=== PATIENT | male | born 1985 | race African-American/Black ===

== ENCOUNTER 2025-02-12 18:39 | Inpatient (IN) | payer SELFPAY ==
--- NOTE | ~2025-02-12 | XR_ITS ---
CLINICAL HISTORY: SOB 1 view chest x-ray Comparison: None provided Findings: Heart size is normal. No consolidation, significant pleural effusion or pneumothorax. No acute fracture. IMPRESSION: 1. No acute findings. This document has been electronically signed by: Diana Michael MD on 02/12/2025 20:11:58
--- NOTE | 2025-02-12 18:43 | ECG_ITS ---
Test Reason : SOB Blood Pressure : */* mmHG Vent. Rate : 111 BPM Atrial Rate : 111 BPM P-R Int : 148 ms QRS Dur : 86 ms QT Int : 342 ms P-R-T Axes : 73 50 50 degrees QTcB Int : 465 ms Sinus tachycardia Otherwise normal ECG No previous ECGs available Referred By: Javier Wadsworth Electronically Signed By: STEPHANIE DUARTE
[2025-02-12 18:46] VITALS: BP 175/103; PULSE 104; RESP 30; O2SAT 86; BMI 36.9
[2025-02-12 18:52] VITALS: PULSE 102; RESP 30; O2SAT 94
[2025-02-12] MEDS: Albuterol Sulfate 7.5 MG, Albuterol/Iprat 2.5/0.5MG 3 ML 3 ML INHALE (18:53)
[2025-02-12] MEDS: Magnesium Sulfate/H2O 2 GM/50 ML PIGGYBACK IV (18:54)
[2025-02-12 18:57] LABS: MANUAL DIFF FLAG NO
--- NOTE | 2025-02-12 18:59 | ED_ITS ---
HPI - SOB/Dyspnea General Chief Complaint: Dyspnea Stated Complaint: SOB Time Seen by Provider: 02/12/25 18:58 History of Present Illness ED Provider: Bobo Isabel MD HPI Narrative: 39-year-old male with lifelong asthma nonadherent with medications other than PRN albuterol pump which he has been using more over the past week. 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 Related Data Home Medications ?Medication ?Instructions ?Recorded ?Confirmed albuterol sulfate 90 mcg/actuation 2 puff inhalation Q 6H PRN 02/13/25 02/13/25 aerosol inhaler Shortness Of Breath Or Wheez ing budesonide-formoterol HFA 160 2 puff inhalation DAILY 02/13/25 02/13/25 mcg-4.5 mcg/actuation aerosol inhaler (Symbicort) montelukast 10 mg tablet 10 mg PO DAILY 02/13/2501/24 Previous Rx's ?Medication ?Instructions ?Recorded prednisone 20 mg tablet 20 mg PO DAILY #8 tabs 02/14 Allergies Allergy/AdvReac Type Severity Reaction Status Date / Time No Known Allergies Allergy Verified 02/12/25 18:47 [facility] Past Medical History Medical History (Updated 02/13/25 @ 18:02 by KAY Angel) Asthma Social History Social History Household Members: Significant Other and Children Housing: Apartment Do you presently have visiting nurse or other home services: No Comment: LFR steady gait noted Patient Tobacco Use Status: Tobacco use Unknown e-Cigarette/Vaping Use: Never Used service: No Physical Exam 2 Exam: Exam: EXAM: Gen: Alert, on arrival ill-appearing with tachypnea decreased air entry some accessory muscle use able to speak 3-4 word sentences Head: Atraumatic Eyes: Anicteric, Normal conjunctiva. ENT: Moist mucosa, no pallor. ? Neck: Supple. Skin: ?No observable rash or bruising on exposed or examined skin Respiratory: Tachypnea with decreased air entry and audible but difficult to auscultate wheezing Cardiovascular: Regular rate and rhythm. No murmurs or rub. Well perfused periphery, warm extremities. No edema. ? Abdominal: No focal tenderness. Soft, no objective distension. No palpable masses or obvious organomegaly. ?No guarding, no rebound tenderness or other peritoneal findings. : No flank tenderness. Neuro: Alert. Gross movement of all extremities intact. ? Psych: Calm. Cooperative. MSK: No grossly visible deformity. Vital signs: See flowsheet Vital Signs: Vital Signs: Last Vital Signs Temp 98.7 F 02/14/25 11:13 Pulse 97 02/14/25 11:13 Resp 16 02/14/25 11:13 BP 144/78 H 02/14/25 11:13 Pulse Ox 90 L 02/14/25 11:13 O2 Del Method Room Air 02/14/25 11:13 O2 Flow Rate 2 02/14/25 04:00 BMI result Body Mass Index 36.9 Medications Administered Discontinued Medications Generic Name Dose Route Start Last Admin Trade Name Freq PRN Reason Stop Dose Admin Albuterol/Ipratropium 6 ml 02/12/25 19:38 02/12/25 19:44 Albuterol/Iprat 2.5/0.5mg 3 Ml Ampul.Neb INHALE 02/12/25 19:39 6 ml ONCE ONE Administration Albuterol/Ipratropium 3 ml 02/13/25 08:00 02/14/25 07:58 Albuterol/Iprat 2.5/0.5mg 3 Ml Ampul.Neb INHALE 3 ml RQ6H WHILE AWAKE VALE Administration Albuterol Sulfate 7.5 mg/ 0 mg 02/12/25 18:52 02/12/25 18:53 Albuterol/Ipratropium 3 ml INHALE 02/12/25 18:53 1 each ONCE ONE Administration Enoxaparin Sodium 40 mg 02/13/25 09:00 02/14/25 08:29 Enoxaparin Sodium 40 Mg/0.4 Ml Syringe SUBCUT 40 mg Q24H VALE Administration Fluticasone/Vilanterol 1 puff 02/14/25 08:00 02/14/25 08:08 Fluticasone/Vilanterol 200/25 Blst.W.Dev INHALE 1 puff RDAILY VALE Administration Magnesium Sulfate 2 gm in 50 mls @ 150 mls/hr 02/12/25 18:42 02/12/25 19:34 Magnesium Sulfate/H2o IV 02/12/25 19:01 Infused ONCE ONE Infusion Magnesium Sulfate/Dextrose 1 gm in 100 mls @ 300 mls/hr 02/12/25 20:35 02/12/25 21:50 Magnesium Sulfate/D5w IV 02/12/25 20:54 Infused ONCE ONE Infusion Methylprednisolone Sodium Succinate 60 mg 02/12/25 18:42 02/12/25 18:56 Methylprednisolone Sod Succ 125 Mg/2 Ml Vial IVPUSH 02/12/25 18:43 60 mg ONCE ONE Administration Methylprednisolone Sodium Succinate 40 mg 02/13/25 00:00 02/14/25 06:41 Methylprednisolone Sod Succ 40 Mg/Ml Vial IVPUSH 40 mg Q6H VALE Administration Montelukast Sodium 10 mg 02/14/25 09:00 02/14/25 08:28 Montelukast Sodium 10 Mg Tablet PO 10 mg DAILY VALE Administration Sodium Chloride 3 ml 02/13/25 00:00 02/14/25 08:32 0.9 % Sodium Chloride Flush 3 Ml Syringe IVFLUSH 3 ml QSHIFT VALE Administration Medical Decision Making Medical Decision Making MDM Narrative: Medical Decision Making: [age] male with asthma worsening dyspnea wheezing was 86% with decreased air entry at triage vilchis back when I saw him he was able to speak in a few words was high 90s on an OxyMask. Diminished but audible expiratory wheeze. Mildly tachypneic no retractions or cyanosis. Immediately started on magnesium and DuoNeb OxyMask. The patient was monitored with 2 sequential doses of intravenous magnesium he received IV steroids. Strongly encouraged to see pulmonology Afebrile without focal infiltrate on x-ray doubt pneumonia Preliminary Favored Differential Diagnosis: URI,, pneumothorax, bronchitis, asthma exacerbation among additional considered etiologies Testing Interpreted Independently: ?X-ray with no focal infiltrate ECG: Sinus tachycardia rate 111, QTC 465, no acute ischemic changes no RV strain. Radiology or Lab testing Results Reviewed: ?See below for details Consults: ?See below for details Independent Historians/External Chart Reviews: ?See below for details Social Determinants of Health Impacting MDM/Planning: ?See below for details Lab Data MDM Lab Attestation statement: I reviewed the patient's lab results. 02/13/25 03:51 02/13/25 03:51 Labs: Lab Results 02/12/25 02/12/25 02/12/25 Range/Units 18:47 19:01 19:08 WBC 12.3 H (4.8-10.8) X10*3/uL RBC 5.06 (4.60-5.80) X10*6/uL Hgb 14.8 (14.0-18.0) g/dl Hct 45.2 (42.0-52.0) % MCV 89.3 (80.0-98.0) fL MCH 29.2 (27.0-33.0) pg MCHC 32.7 (31.0-36.0) g/dl RDW 13.4 (11.0-16.0) % Plt Count 391 (160-400) X10*3/uL MPV 8.2 L (9.4-12.4) fL Immature Gran % (Auto) 0.4 (0.0-0.4) % Neut % (Auto) 67.7 (45-73) % Lymph % (Auto) 17.5 L (20-40) % [place] % (Auto) 8.2 (2-11) % Eos % (Auto) 5.8 H (0-4) % Baso % (Auto) 0.4 (0-2) % Lymph # (Auto) 2.2 (1.2-4.9) X10*3/uL [place] # (Auto) 1.0 (0.1-1.2) X10*3/uL Eos # (Auto) 0.7 H (0.0-0.4) X10*3/uL Baso # (Auto) 0.1 (0.0-0.2) X10*3/uL Abs Immat Gran (auto) 0.05 H (0.00-0.03) X10*3/uL Absolute Neuts (auto) 8.3 (2.0-8.3) x10*3/uL Absolute Nucleated RBC 0.000 (0.0-0.012) X10*3/uL Nucleated RBC % (auto) 0.0 (0.0-0.2) /100WBC Hold Purple Top SEE NOTE PT 12.0 (11.2-13.5) SEC INR 1.0 (0.9-1.1) APTT 32.0 (26.7-34.1) SEC VBG pH 7.38 (7.32-7.43) VBG pCO2 46 mmHg VBG pO2 62 mmHg VBG HCO3 27 H (22-26) mmol/L VBG O2 Saturation 86.0 % VBG Base Excess 2.0 mmol/L Sodium 143 (135-145) mmol/L Potassium 4.3 (3.3-5.1) mmol/L Chloride 108 (96-108) mmol/L Carbon Dioxide 26 (22-29) mmol/L Anion Gap 13 (12-20) BUN 15 (9-16) mg/dL Creatinine 0.99 (0.5-1.4) mg/dL Estim Creat Clear Calc 123.1 Estimated GFR > 60 Random Glucose 92 (60-115) mg/dL Calcium 9.5 (8.4-10.2) mg/dL Total Bilirubin 0.3 (0.0-1.0) mg/dL AST 39 H (5-37) U/L ALT 29 (0-40) U/L Alkaline Phosphatase 60 (39-117) U/L Troponin I High Sens < 2.7 (<3.5-35.0) ng/L NT-Pro-B Natriuret Pep 37.9 (<300) pg/mL Total Protein 8.1 H (6.5-8.0) g/dL Albumin 4.9 (3.5-5.0) g/dL Critical Care Time Critical Care Time Critical Care Time: Yes Total Critical Care Time: 30 Attestation: ED Critical Care: Authorized and Performed by: Bobo Isabel MD Total critical care time: Approximately 30 min Due to a high probability of clinically significant, life threatening deterioration, the patient required my highest level of preparedness to intervene emergently and I personally spent this critical care time directly and personally managing the patient. This critical care time included obtaining a history; examining the patient; pulse oximetry; ordering and review of studies; arranging urgent treatment with development of a management plan; evaluation of patient's response to treatment; frequent reassessment; and, discussions with other providers. This critical care time was performed to assess and manage the high probability of imminent, life-threatening deterioration that could result in multi-organ failure. It was exclusive of separately billable procedures and treating other patients and teaching time. Discharge Plan Discharge Clinical Impression: Asthma with exacerbation Qualifiers: Asthma severity: unspecified severity Asthma persistence: unspecified Qualified Code(s): J45.901 - Unspecified asthma with (acute) exacerbation Patient Disposition: Admitted As Inpatient Interventions: Admission Worksheet (ED) Last Done: 02/13/25 01:40 Discharge Date/Time: 02/13/25 04:05
[2025-02-12 19:00] LABS: Hematocrit 45.2 % (42.0-52.0); Hemoglobin 14.8 g/dl (14.0-18.0); Imm Gran Abs Auto 0.05 X10*3/uL (0.00-0.03); Imm Gran Pct Auto 0.4 % (0.0-0.4); Lymphocytes Absolute Auto 2.2 X10*3/uL (1.2-4.9); Mean Corpuscular HGB Conc 32.7 g/dl (31.0-36.0); Mean Corpuscular Hemoglobin 29.2 pg (27.0-33.0); Mean Corpuscular Volume 89.3 fL (80.0-98.0); NRBC Abs Auto 0.000 X10*3/uL (0.0-0.012); NRBC Pct Auto 0.0 /100WBC (0.0-0.2); Platelet Count 391 X10*3/uL (160-400); Red Blood Count 5.06 X10*6/uL (4.60-5.80); White Blood Count 12.3 X10*3/uL (4.8-10.8)
[2025-02-12 19:10] LABS: VBG HCO3 27 mmol/L (22-26); VBG O2 % Saturation 86.0 %
[2025-02-12 19:19] LABS: Alanine Aminotransferase 29 U/L (0-40); Albumin Level 4.9 g/dL (3.5-5.0); Alkaline Phosphatase 60 U/L (39-117); Anion Gap 13 (12-20); Aspartate Amino Transferase 39 U/L (5-37); Blood Urea Nitrogen 15 mg/dL (9-16); Calcium 9.5 mg/dL (8.4-10.2); Carbon Dioxide 26 mmol/L (22-29); Chloride 108 mmol/L (96-108); Creatinine Clr Calc Pharmacy 123.1; Estimated Glomerular Filt Rate > 60; Potassium 4.3 mmol/L (3.3-5.1); Sodium 143 mmol/L (135-145); Total Protein 8.1 g/dL (6.5-8.0)
[2025-02-12 19:38] VITALS: BP 119/85; PULSE 102; RESP 20; O2SAT 94
[2025-02-12 19:38] LABS: INTERNATIONAL NORM RATIO 1.0 (0.9-1.1); Prothrombin Time 12.0 SEC (11.2-13.5)
[2025-02-12 19:38] LABS: Troponin-I High Sensitivity < 2.7 ng/L (<3.5-35.0)
--- NOTE | 2025-02-12 19:38 | PC.NURSE ---
Pt A&ox3. Pt reports feeling better after receiving nebulizer treatment, IV magnesium & IV steroids. Pt still slightly tachypneic. Pt still has mild wheeze in lungs bilat, stable spO2 on 6L oxygen via NC. 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 Pt placed on tele. Pt's mother at bedside. Plan for another nebulizer treatment.
[2025-02-12 19:40] LABS: Partial Thromboplastin Time 32.0 SEC (26.7-34.1)
[2025-02-12 19:41] LABS: NT Pro B Type Natriuretic Pept 37.9 pg/mL (<300)
[2025-02-12] MEDS: Albuterol/Iprat 2.5/0.5MG 3 ML AMPUL.NEB 6 ML INHALE (19:44)
[2025-02-12 19:46] VITALS: PULSE 102; RESP 20; O2SAT 95
--- OUTSIDE RECORDS SUMMARY | 2025-02-12 19:49 | XMS_ITS ---
Author Name [facility] Organization Unknown Care Team Organization Name Specialty Phone Email Start Date End Da te [facility] Marylu Aquino [facility] 07/30/2022 11/11/2023 [facility] Kiera Saenz [facility] 01/30/2022
[2025-02-12 20:10] LABS: Venous Blood Gas Refer to POC result
[2025-02-12 21:51] VITALS: PULSE 83; RESP 15; O2SAT 95
--- NOTE | 2025-02-12 23:07 | P.HPHOSP_ITS ---
History of Present Illness Date of Service: 02/12/25 Chief Complaint: sob 39-year-old male with a past medical history of asthma presented to the hospital with a chief complaint of shortness of breaths. Patient mentioned that for the past 1 day he has been having shortness of breath presented to the ER further evaluation. Denies any specific triggers for his asthma. Denies prior history of intubation. Patient denies any fever chills cough or sputum production. Denies any sick contacts. Review of all other systems is negative except mentioned above ER course: Per ER team, patient noted to have bilateral wheezing on presentation was hypoxic to 88%; placed on supplemental oxygen; given nebulizations and steroids. Speech status improved. [facility] Social History Advance Directives: No Advance Directives Information Provided: No Meds Allergies Allergy/AdvReac Type Severity Reaction Status Date / Time No Known Allergies Allergy Verified 02/12/25 18:47 Active Medications: Current Medications Acetaminophen (Acetaminophen 325 Mg Tablet) 650 mg PO Q6H PRN PRN Reason: Pain, Mild 1-3,fever,headache Calcium Carbonate (Calcium Carbonate 750 Mg Tab.Chew) 750 mg PO Q4H PRN PRN Reason: Heartburn Enoxaparin Sodium (Enoxaparin Sodium 40 Mg/0.4 Ml Syringe) 40 mg SUBCUT Q24H VALE Magnesium Hydroxide (Milk Of Magnesia 30 Ml Oral.Susp) 30 ml PO DAILY PRN PRN Reason: Constipation Melatonin (Melatonin 3 Mg Tablet) 6 mg PO BEDTIME PRN PRN Reason: Insomnia Sodium Chloride (0.9 % Sodium Chloride Flush 3 Ml Syringe) 3 ml IVFLUSH QSHIFT [facility] Physical Exam 2 Vital Signs and Narrative: Vital Signs: Last Vital Signs Pulse 83 02/12/25 21:51 Resp 15 02/12/25 21:51 BP 119/85 02/12/25 19:38 Pulse Ox 95 02/12/25 21:51 O2 Del Method Nasal Cannula 02/12/25 21:51 O2 Flow Rate 4 02/12/25 21:51 BMI result Body Mass Index 36.9 Gen: Appears be in no acute distress HEENT: NCAT, Moist mucosa. Pulmonary: Coarse breath sounds CVS: Normal S1-S2 Abdomen: BS+, Soft, Nontender Extremities: Warm well perfused Neuro: Alert and awake. Results Labs 02/12/25 18:47 02/12/25 18:47 Labs: Laboratory Results - last 24 hr 02/12/25 02/12/25 02/12/25 18:47 19:01 19:08 MCV 89.3 MCH 29.2 MCHC 32.7 RDW 13.4 Plt Count 391 MPV 8.2 L Immature Gran % (Auto) 0.4 Neut % (Auto) 67.7 Lymph % (Auto) 17.5 L [place] % (Auto) 8.2 Eos % (Auto) 5.8 H Baso % (Auto) 0.4 Lymph # (Auto) 2.2 [place] # (Auto) 1.0 Eos # (Auto) 0.7 H Baso # (Auto) 0.1 Abs Immat Gran (auto) 0.05 H Absolute Neuts (auto) 8.3 Absolute Nucleated RBC 0.000 Nucleated RBC % (auto) 0.0 Hold Purple Top SEE NOTE PT 12.0 INR 1.0 APTT 32.0 VBG pH 7.38 VBG pCO2 46 VBG pO2 62 VBG HCO3 27 H VBG O2 Saturation 86.0 VBG Base Excess 2.0 Anion Gap 13 Estim Creat Clear Calc 123.1 Estimated GFR > 60 Random Glucose 92 Calcium 9.5 Total Bilirubin 0.3 AST 39 H ALT 29 Alkaline Phosphatase 60 Troponin I High Sens < 2.7 NT-Pro-B Natriuret Pep 37.9 Total Protein 8.1 H Albumin 4.9 Assessment and Plan (1) Asthma with exacerbation: Qualifiers: Asthma severity: unspecified severity Asthma persistence: unspecified Qualified Code(s): J45.901 - Unspecified asthma with (acute) exacerbation Status: Acute Plan 39-year-old male with a past medical history of asthma-never intubated, cannabis use presented to the hospital with a chief complaint of shortness of breath. Noted to have acute asthma exacerbation. Acute asthma exacerbation: Acute hypoxic respiratory failure: Chest x-ray showed no evidence of pneumonia D-dimer negative Has bilateral wheezing Continue nebulizations standing and plan Continue Solu-Medrol Trending pulse oximetry and ready for discharge DVT prophylaxis: Lovenox Code status: Full code Quality Stroke Does the patient have a stroke diagnosis?: No VTE Prior VTE?: No VTE Risk Level:: Medical - moderate - high VTE Device Contraindication: Treatment Not Indicated VTE Drug Contraindication: N/A - Med Ordered
--- NOTE | 2025-02-12 23:10 | PC.NURSE ---
Pt O2 noted to drop to 87-89% on room air. Pt placed on oxygen @ 2L NC per protocol.
[2025-02-12 23:15] VITALS: BP 128/73; PULSE 85; RESP 19; TEMP 36.7; O2SAT 92
[2025-02-12 23:39] LABS: D Dimer High Sensitivity < 150 NG/ML
[2025-02-13] VITALS (10 sets, daily range): BP systolic 132–158; BP diastolic 64–87; PULSE 73–94; RESP 14–18; TEMP 36.6–37.5; O2SAT 87–95
[2025-02-13] MEDS: 0.9 % Sodium Chloride Flush 3 ML SYRINGE IVFLUSH ×3 (03:30→17:11)
[2025-02-13 04:11] LABS: Hematocrit 41.5 % (42.0-52.0); Hemoglobin 13.8 g/dl (14.0-18.0); Mean Corpuscular HGB Conc 33.3 g/dl (31.0-36.0); Mean Corpuscular Hemoglobin 29.2 pg (27.0-33.0); Mean Corpuscular Volume 87.9 fL (80.0-98.0); NRBC Abs Auto 0.000 X10*3/uL (0.0-0.012); NRBC Pct Auto 0.0 /100WBC (0.0-0.2); Platelet Count 365 X10*3/uL (160-400); Red Blood Count 4.72 X10*6/uL (4.60-5.80); White Blood Count 10.3 X10*3/uL (4.8-10.8)
[2025-02-13 04:26] LABS: Alanine Aminotransferase 25 U/L (0-40); Albumin Level 4.7 g/dL (3.5-5.0); Alkaline Phosphatase 56 U/L (39-117); Anion Gap 15 (12-20); Aspartate Amino Transferase 18 U/L (5-37); Blood Urea Nitrogen 14 mg/dL (9-16); Calcium 9.2 mg/dL (8.4-10.2); Carbon Dioxide 24 mmol/L (22-29); Chloride 105 mmol/L (96-108); Creatinine Clr Calc Pharmacy 133.9; Estimated Glomerular Filt Rate > 60; Potassium 4.6 mmol/L (3.3-5.1); Sodium 139 mmol/L (135-145); Total Protein 7.4 g/dL (6.5-8.0)
[2025-02-13] MEDS: Albuterol/Iprat 2.5/0.5MG 3 ML AMPUL.NEB INHALE ×2 (08:18→14:05)
--- NOTE | 2025-02-13 09:45 | PHA.MEDREC ---
Addendum entered by Justo Ruffin PharmD 02/13/25 10:00: reviewed Original Note: Pharmacy Consult ? Medication Reconciliation Pharmacy has completed the medication reconciliation. Confirmed medication list with patient. 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 patient states he would otherwise be taking these medications.
--- NOTE | 2025-02-13 12:04 | P.PNIM_ITS ---
Subjective Subjective Date of Service: 02/13/25 Interval History: Still SOB and wheezing but better than last night Attempted to wean off of O2 this morning and pt desatting to 87% No significant cough Chest tightness with breathing, no pain or pressure Denies fever or chills Review of Systems Review of Systems: Yes all other systems are reviewed and are negative Physical Exam 2 Exam: Exam: General: AOx3, no acute distress Resp: Poor airflow, mild wheezing bilaterally CVS: S1, S2, RRR GI: +BS, NT, no distention Skin: Warm, dry Neuro: Cranial nerves II-XII grossly intact bilaterally. Motor grossly intact bilaterally Extremities: No edema Psych: Appropriate affect Vital Signs: Vital Signs: Last Vital Signs Temp 97.8 F 02/13/25 11:16 Pulse 86 02/13/25 11:16 Resp 16 02/13/25 11:16 BP 155/87 H 02/13/25 11:16 Pulse Ox 91 L 02/13/25 11:16 O2 Del Method Nasal Cannula 02/13/25 11:16 O2 Flow Rate 1 02/13/25 11:16 BMI result Body Mass Index 36.9 Objective Data Active Medications Acetaminophen (Acetaminophen 325 Mg Tablet) 650 mg PO Q6H PRN PRN Reason: Pain, Mild 1-3,fever,headache Albuterol/Ipratropium (Albuterol/Iprat 2.5/0.5mg 3 Ml Ampul.Neb) 3 ml INHALE Q4H PRN PRN Reason: Shortness of Breath/Wheezing Albuterol/Ipratropium (Albuterol/Iprat 2.5/0.5mg 3 Ml Ampul.Neb) 3 ml INHALE RQ6H WHILE AWAKE [facility] Last Admin: 02/13/25 08:18 Dose: 3 ml Documented By: WILLIS Benzonatate (Benzonatate 100 Mg Capsule) 100 mg PO TID PRN PRN Reason: Cough Calcium Carbonate (Calcium Carbonate 750 Mg Tab.Chew) 750 mg PO Q4H PRN PRN Reason: Heartburn Enoxaparin Sodium (Enoxaparin Sodium 40 Mg/0.4 Ml Syringe) 40 mg SUBCUT Q24H [facility] Last Admin: 02/13/25 09:43 Dose: 40 mg Documented By: OJSEPH Magnesium Hydroxide (Milk Of Magnesia 30 Ml Oral.Susp) 30 ml PO DAILY PRN PRN Reason: Constipation Melatonin (Melatonin 3 Mg Tablet) 6 mg PO BEDTIME PRN PRN Reason: Insomnia Methylprednisolone Sodium Succinate (Methylprednisolone Sod Succ 40 Mg/Ml Vial) 40 mg IVPUSH Q6H [facility] Last Admin: 02/13/25 11:38 Dose: 40 mg Documented By: JOSEPH Sodium Chloride (0.9 % Sodium Chloride Flush 3 Ml Syringe) 3 ml IVFLUSH QSHIFT [facility] Last Admin: 02/13/25 09:48 Dose: 3 ml Documented By: JOSEPH Labs 02/13/25 03:51 02/13/25 03:51 Labs: Laboratory Results - last 24 hr 02/12/25 02/12/25 02/12/25 18:47 19:01 19:08 MCV 89.3 MCH 29.2 MCHC 32.7 RDW 13.4 Plt Count 391 MPV 8.2 L Immature Gran % (Auto) 0.4 Neut % (Auto) 67.7 Lymph % (Auto) 17.5 L [place] % (Auto) 8.2 Eos % (Auto) 5.8 H Baso % (Auto) 0.4 Lymph # (Auto) 2.2 [place] # (Auto) 1.0 Eos # (Auto) 0.7 H Baso # (Auto) 0.1 Abs Immat Gran (auto) 0.05 H Absolute Neuts (auto) 8.3 Absolute Nucleated RBC 0.000 Nucleated RBC % (auto) 0.0 Hold Purple Top SEE NOTE PT 12.0 INR 1.0 APTT 32.0 D-Dimer High Sensitivty VBG pH 7.38 VBG pCO2 46 VBG pO2 62 VBG HCO3 27 H VBG O2 Saturation 86.0 VBG Base Excess 2.0 Anion Gap 13 Estim Creat Clear Calc 123.1 Estimated GFR > 60 Random Glucose 92 Calcium 9.5 Total Bilirubin 0.3 AST 39 H ALT 29 Alkaline Phosphatase 60 Troponin I High Sens < 2.7 NT-Pro-B Natriuret Pep 37.9 Total Protein 8.1 H Albumin 4.9 02/12/25 02/13/25 23:21 03:51 MCV 87.9 MCH 29.2 MCHC 33.3 RDW 13.3 Plt Count 365 MPV 8.3 L Immature Gran % (Auto) Neut % (Auto) Lymph % (Auto) [place] % (Auto) Eos % (Auto) Baso % (Auto) Lymph # (Auto) [place] # (Auto) Eos # (Auto) Baso # (Auto) Abs Immat Gran (auto) Absolute Neuts (auto) Absolute Nucleated RBC 0.000 Nucleated RBC % (auto) 0.0 Hold Purple Top PT INR APTT D-Dimer High Sensitivty < 150 VBG pH VBG pCO2 VBG pO2 VBG HCO3 VBG O2 Saturation VBG Base Excess Anion Gap 15 Estim Creat Clear Calc 133.9 Estimated GFR > 60 Random Glucose 153 H Calcium 9.2 Total Bilirubin 0.3 AST 18 ALT 25 Alkaline Phosphatase 56 Troponin I High Sens NT-Pro-B Natriuret Pep Total Protein 7.4 Albumin 4.7 Assessment and Plan (1) Asthma with exacerbation: Status: Acute (2) Acute hypoxic respiratory failure: Status: Acute Plan 39-year-old male with a past medical history of asthma-never intubated, cannabis use presented to the hospital with a chief complaint of shortness of breath. Noted to have acute asthma exacerbation. Acute hypoxic respiratory failure in the setting of acute asthma exacerbation Chest x-ray showed no evidence of pneumonia D-dimer negative Has bilateral wheezing, still requiring O2 Continue nebulizations standing and prn, Solu-Medrol Trending pulse oximetry and ready for discharge DVT prophylaxis: Lovenox Code status: Full code Pt requires continued hospitalization as he still require supplemental oxygen due to hypoxia. Pt continues to be treated with IV steroids and breathing treatments. Quality Stroke Does the patient have a stroke diagnosis?: No VTE Prior VTE?: No VTE Risk Level:: Medical - moderate - high VTE Device Contraindication: Treatment Not Indicated VTE Drug Contraindication: N/A - Med Ordered
[2025-02-14] MEDS: 0.9 % Sodium Chloride Flush 3 ML SYRINGE IVFLUSH ×2 (00:39→08:32)
[2025-02-14 04:00] VITALS: BP 137/80; PULSE 78; RESP 18; TEMP 36.9; O2SAT 91
[2025-02-14 07:37] VITALS: BP 160/95; PULSE 81; RESP 16; TEMP 36.7; O2SAT 90
[2025-02-14] MEDS: Albuterol/Iprat 2.5/0.5MG 3 ML AMPUL.NEB INHALE (07:58)
[2025-02-14 07:59] VITALS: PULSE 72; RESP 18; O2SAT 91
[2025-02-14] MEDS: Fluticasone/Vilanterol 200/25 BLST.W.DEV 1 PUFF INHALE (08:08)
[2025-02-14 08:12] VITALS: PULSE 42; RESP 18; O2SAT 91
--- NOTE | 2025-02-14 10:59 | MHC.CM.PN ---
Addendum entered by Maribel Joyner 02/14/25 12:37: PT CLEARED TO DC HOME TODAY WITH NO SERVICES PT EXPRESSED CONCERN ABOUT FILLING HIS Rx FOR PREDNISONE GOOD Rx INFORMATION PROVIDED, PT WILL HAVE IT FILLED AT [facility] WHERE IT WILL BE UNDER $9. PT ARRANGED HIS OWN TRANSPORT Original Note: PT REPORTS HE LIVES WITH HIS PARENT AND IS INDEPENDENT WITH CARE HE HAS NO DME OR SERVICES. HE NO LONGER HAS A PCP, SAYS HE HAS NOT SEEN [facility] IN WELL OVER A YEAR DECLINES A HCP PT CURRENTLY HAS NO HEALTH INSURANCE, REFERRAL SENT TO [facility] [place] DCP: HOME VIA PRIVATE TRANSPORT
[2025-02-14 11:13] VITALS: BP 144/78; PULSE 97; RESP 16; TEMP 37.1; O2SAT 90
--- NOTE | 2025-02-14 11:14 | PM.DS ---
DS: Providers Provider Date of Service: 02/14/25 Date of admission: 02/12/25 23:09 Date of discharge: 02/14/25 Primary care physician: Dex Johnston MD DS: Diagnosis Discharge Diagnosis (1) Asthma with exacerbation: Status: Acute (2) Acute hypoxic respiratory failure: Status: Acute DS: Summary Hospital Course Hospital Course: From admission HPI: Date of Service: 02/12/25 Chief Complaint: sob 39-year-old male with a past medical history of asthma presented to the hospital with a chief complaint of shortness of breaths. Patient mentioned that for the past 1 day he has been having shortness of breath presented to the ER further evaluation. Denies any specific triggers for his asthma. Denies prior history of intubation. Patient denies any fever chills cough or sputum production. Denies any sick contacts. Review of all other systems is negative except mentioned above ER course: Per ER team, patient noted to have bilateral wheezing on presentation was hypoxic to 88%; placed on supplemental oxygen; given nebulizations and steroids. Speech status improved. Hospital course: Pt was admitted to the hospital for acute hypoxic respiratory failure in setting of asthma exacerbation likely secondary to chemical spill at work and/or smoking marijuana daily. Pt required admission to the hospital after not responding well to ED therapies as he was still requiring supplemental oxygen. This morning pt was eventually weaned from supplemental oxygen and he reports feeling much better and breathing now back to baseline. Lungs are CTA. Pt is strongly encouraged to abstain from smoking marijuana and seeking alternative means of THC consumption if necessary. You will be discharged home on a short prednisone course and should resume his home inhalers. Time Attestation Discharge Coordination Time (in mins): 35 Quality: Safe Use of Opioids Does Pt have an Active Cancer Diagnosis on the Problem List?: No Quality: Stroke Does the patient have a stroke diagnosis?: No Physical Exam Exam: Exam: General: AOx3, no acute distress Resp: CTA bilaterally CVS: S1, S2, RRR GI: +BS, NT, no distention Skin: Warm, dry Neuro: Cranial nerves II-XII grossly intact bilaterally. Motor grossly intact bilaterally Extremities: No edema Psych: Appropriate affect Vital Signs: Vital Signs: Last Vital Signs Temp 98.0 F 02/14/25 07:37 Pulse 42 L 02/14/25 08:12 Resp 18 02/14/25 08:12 BP 160/95 H 02/14/25 07:37 Pulse Ox 90 L 02/14/25 07:37 O2 Del Method Room Air 02/14/25 07:37 O2 Flow Rate 2 02/14/25 04:00 BMI result Body Mass Index 36.9 Discharge Plan Discharge Anticipated Discharge Date/Time: 02/14/25 11:05 Patient Disposition: Home, Self-Care Discharge Diagnosis: Acute hypoxic respiratory failure in the setting of asthma exacerbation Referrals: [facility] [place] [facility] [Provider Group, Pulmonology] Dex Johnston MD [Primary Care Provider, Internal Medicine] - 1 Week Discharge Medications: New prednisone 20 mg tablet 20 mg PO DAILY Qty: 8 0RF Rx Instructions: Take 40 mg daily (2 tabs) for 3 days, then 1 20 mg tab daily after that for 2 additional days Continued montelukast 10 mg tablet 10 mg PO DAILY Patient Comments: Patient had lapse in insurance coverage, and has not been able to orange picker medications as a result. budesonide-formoterol [Symbicort] 160-4.5 mcg/actuation HFA aerosol inhaler 2 puff INHALATION DAILY Patient Comments: Patient had lapse in insurance coverage, and has not been able to orange picker medications as a result. albuterol sulfate 90 mcg/actuation Hfa Aerosol Inhaler 2 puff INHALATION Q6H PRN (Reason: Shortness Of Breath Or Wheezing) Discontinued prednisone 20 mg Tablet 60 mg PO DAILY Discharge Orders: Discharge Order (Routine); Ordered 02/14/25 Ordered By: Bailee Farrell Activity on Discharge: As tolerated Stand Alone Forms: Patient Portal Discharge page Print Language: [place]ill[place] Activity Restrictions/Additional Instructions: Please call pulmonology he will need to see them for follow up. Use the albuterol through the spacer as instructed. Take the prednisone Care Plan Goals: See below Health Concerns: Acute hypoxic respiratory failure Asthma exacerbation Plan of Treatment: You were admitted to the hospital for acute hypoxic respiratory failure in the setting of asthma exacerbation possibly caused by chemical exposure at work and/or daily marijuana use. You were treated with IV steroids and bronchodilator therapy to good effect with eventual improvement in your breathing. At time of discharge you have been weaned off of supplemental oxygen breathing back to baseline. You will be prescribed a short prednisone taper. -- take prednisone 40 mg daily for 3 days, then 20 mg daily for an additional 2 days -- you were strongly encouraged to abstain from smoking marijuana as it can cause irritation to your lungs and lead to an asthma exacerbation. Seek out alternative means of THC consumption if necessary --resume all of your other home medications and inhalers Assessment: See discharge summary Patient Instructions: Asthma (ED)
== END 2025-02-14 12:04 | disposition home or self-care (01) | DRG 202 ==
LOC: HO.ED 21:55 → HO.EDOVER 23:12 → HO.IMC 02-13 03:27
PROVIDERS: Hospitalist; Physician Assistant; Admitting Provider Physician Assistant; Emergency Provider Emergency Medicine; PCP Internal Medicine; Visit Provider Student in an Organized Health Care Education/Training Program
DX: J45.901 Unspecified asthma with (acute) exacerbation (principal); J96.01 Acute respiratory failure with hypoxia; Z91.148 Patient's other noncompliance with medication regimen for other reason; Z77.098 Contact with and (suspected) exposure to other hazardous, chiefly nonmedicinal, chemicals; Z79.899 Other long term (current) drug therapy
CPT/HCPCS: 36415; 71045; 80053; 82803; 83880; 84484; 85025; 85027; 85379; 85610; 85730; 93005; 94640; 99285; J1650; J2919; J3475

== ENCOUNTER → 2025-02-12 18:43 | Outpatient (BNV) | payer SELFPAY | PROVIDERS: Admitting Provider Physician Assistant; Emergency Provider Emergency Medicine; PCP Internal Medicine; Visit Provider Internal Medicine | DX: R00.0 Tachycardia, unspecified (principal) | CPT/HCPCS: 93010 ==

== ENCOUNTER → 2025-02-12 18:43 | Outpatient (BNV) | payer SELFPAY | PROVIDERS: Emergency Provider Emergency Medicine; PCP Internal Medicine; Visit Provider Specialist | DX: R06.02 Shortness of breath (principal) | CPT/HCPCS: 71045 ==

== ENCOUNTER → 2025-02-12 23:09 | Outpatient (BNV) | payer SELFPAY | PROVIDERS: Admitting Provider Physician Assistant; Emergency Provider Emergency Medicine; PCP Internal Medicine; Visit Provider Student in an Organized Health Care Education/Training Program | DX: J96.01 Acute respiratory failure with hypoxia (principal); J45.901 Unspecified asthma with (acute) exacerbation | CPT/HCPCS: 99223; 99233 ==